=== PATIENT | male | born 1975 | race Caucasian/White ===

== ENCOUNTER 2021-09-18 10:01 | Emergency (ER) | payer OTHER ==
[~2021-09-18] VITALS: Ht 182.9 cm; Wt 75.0 kg
[2021-09-18 10:31] VITALS: BP 123/86
[2021-09-18] MEDS ORDERED: NAPR-681 PO (11:27)
== END 2021-09-18 11:53 | disposition home or self-care (01) ==
LOC: ER 10:01
DX: M25.522 Pain in left elbow (principal)
CPT/HCPCS: 73080; 99283